=== PATIENT | female | born 2005 | race Caucasian/White ===

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

== ENCOUNTER 2024-08-13 15:01 | Emergency (ER) | payer OTHER ==
[~2024-08-13 15:01] MED LIST: CEPHALEXIN500 MG PO; ONDANSETRON ODT4 MG PO
== END 2024-08-13 15:11 | disposition short-term general hospital (02) ==
LOC: ER 15:11
DX: S09.90XA Unspecified injury of head, initial encounter (principal)

== ENCOUNTER 2024-08-13 15:16 | Emergency (ER) | payer MEDICARE, OTHER ==
[~2024-08-13] VITALS: Ht 162.6 cm; Wt 98.0 kg
[2024-08-13 16:32] VITALS: PULSE 77; RESP 16; TEMP 98.2; O2SAT 99
== END 2024-08-13 16:32 | disposition home or self-care (01) ==
LOC: FSED 15:21
DX: O26.891 Other specified pregnancy related conditions, first trimester (principal); S00.83XA Contusion of other part of head, initial encounter; R51.9 Headache, unspecified; O21.1 Hyperemesis gravidarum with metabolic disturbance; R10.13 Epigastric pain; W01.0XXA Fall on same level from slipping, tripping and stumbling without subsequent striking against object, initial encounter; Y93.51 Activity, roller skating (inline) and skateboarding; Y92.89 Other specified places as the place of occurrence of the external cause; K21.9 Gastro-esophageal reflux disease without esophagitis
CPT/HCPCS: 81003; 81025; 87086; 99283